=== PATIENT | male | born 1965 | race Caucasian/White ===

== ENCOUNTER → 2023-05-30 10:02 | Outpatient (REF) | payer BC, SELFPAY | LOC: RAD 10:02 | PROVIDERS: ATTENDING PHYSICIAN Internal Medicine Rheumatology; FAMILY PHYSICIAN Internal Medicine Rheumatology | DX: L40.9 Psoriasis, unspecified (principal); M19.90 Unspecified osteoarthritis, unspecified site; M46.1 Sacroiliitis, not elsewhere classified; M79.643 Pain in unspecified hand; M79.673 Pain in unspecified foot | CPT/HCPCS: 72190; 73130; 73630 ==

== ENCOUNTER 2024-07-25 06:20 | Day surgery (SDC) | payer BC, SELFPAY | END 2024-07-25 15:23 | disposition home or self-care (01) | LOC: GI 06:20 | PROVIDERS: ATTENDING PHYSICIAN Internal Medicine Gastroenterology | DX: Z12.11 Encounter for screening for malignant neoplasm of colon (principal); K64.8 Other hemorrhoids; Z83.719 Family history of colon polyps, unspecified | CPT/HCPCS: G0105 ==